=== PATIENT | male | born 1980 | race Caucasian/White ===

== ENCOUNTER 2018-01-20 14:57 | Emergency (ER) | payer OTHER, MEDICAID ==
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
[2018-01-20] MEDS ORDERED: IBUPROFEN 800 MG TAB PO ONE (16:36)
[2018-01-20] MEDS: CYCLOBENZAPRINE 10 MG TAB PO ONE ×2 (16:44→16:47)
[2018-01-20 18:53] VITALS: BP 122/78
== END 2018-01-20 18:53 | disposition home or self-care (01) ==
DX: S39.92XA Unspecified injury of lower back, initial encounter (principal); S60.211A Contusion of right wrist, initial encounter; V89.2XXA Person injured in unspecified motor-vehicle accident, traffic, initial encounter; Y92.410 Unspecified street and highway as the place of occurrence of the external cause

== ENCOUNTER 2018-01-21 10:32 | Emergency (ER) | payer OTHER, MEDICAID ==
[2018-01-21] MEDS ORDERED: DIAZEPAM 5 MG TAB PO ONE (11:12)
[2018-01-21] MEDS ORDERED: GABAPENTIN 300 MG CAP PO ONE (11:12)
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
[2018-01-21 11:36] LABS: PLATELET COUNT 241 10^3/uL (150-400)
[2018-01-21 11:44] LABS: INR 0.98 (0.83-1.16); PROTIME(PATIENT) 13.2 SEC (12.0-15.0)
[2018-01-21 12:31] VITALS: BP 122/64
== END 2018-01-21 12:38 | disposition home or self-care (01) ==
DX: S16.1XXA Strain of muscle, fascia and tendon at neck level, initial encounter (principal); V49.40XA Driver injured in collision with unspecified motor vehicles in traffic accident, initial encounter; Y92.410 Unspecified street and highway as the place of occurrence of the external cause; Y99.8 Other external cause status; Y93.89 Activity, other specified